=== PATIENT | female | born 1965 | race Caucasian/White ===

== ENCOUNTER 2016-03-20 16:11 | Emergency (ER) | payer BC ==
[2016-03-20 16:41] VITALS: BP 103/71
--- NOTE | 2016-03-20 17:07 | UC ---
Throat Pain/Nasal Uriel HPI - HPI Summary HPI Summary: complaint of right eye redness and itching which started last night - some purulent discharge and crusting on eyelashes this morning used normal saline drops without relief nasal congestion that returned 3 days ago mild sore throat post nasal drip non productive cough dx with sinusitis and finished a course of augmentin approx 6 days ago still taking prednisone for lupus flareup taking tylenol, affrin nasal spray OTC cold and sinus - History of Current Complaint Chief Complaint: UCGeneralIllness Stated Complaint: SINUS/PINK EYE Time Seen by Provider: 03/20/16 17:01 Hx Obtained From: Patient - Allergies/Home Medications Allergies/Adverse Reactions: Allergies Allergy/AdvReac Type Severity Reaction Status Date / Time Ciprofloxacin [From Cipro] Allergy Intermediate itchy rash Verified 03/20/16 16: 42 Levofloxacin [From Levaquin] Allergy Intermediate itchy rash Verified 03/20/16 16:42 Morphine and Related Allergy Intermediate itchy rash Verified 03/20/16 16:42 Home Medications: Home Medications Folic Acid TAB* [Folvite TAB*] 1 mg PO DAILY 03/20/16 [History Confirmed ] Hydroxychloroquine TAB* [Plaquenil TAB*] 200 mg PO BID 03/20/16 [History Confirmed 03/20/16] Methotrexate* 12.5 mg .SEE ORDER WEEKLY 03/20/16 [History Confirmed 03/20/16] PMH/Surg Hx/FS Hx/Imm Hx Previously Healthy: No - lupus flareup Endocrine History Of: Reports: Thyroid Disease Cardiovascular History Of: Reports: Cardiac Disorders - SVT - Surgical History Surgical History: Yes Surgery Procedure, Year, and Place: HYSTERECTOMY, GALL BLADDER REMOVAL, TONSILLECTOMY - Family History Known Family History: Negative: Cardiac Disease, Hypertension, Diabetes - Social History Occupation: Employed Full-time Lives: With Family Alcohol Use: Occasionally Substance Use Type: None Smoking Status (MU): Current Some Day Smoker Type: Cigarettes Length of Time of Smoking/Using Tobacco: 30 YRS Cessation Counseling: Patient Advised to Stop Review of Systems Constitutional: Negative ENT: Sore Throat, Nasal Discharge Respiratory: Cough Cardiovascular: Negative Gastrointestinal: Negative Genitourinary: Negative Motor: Negative Neurovascular: Negative Musculoskeletal: Negative Neurological: Negative Psychological: Negative All Other Systems Reviewed And Are Negative: Yes Physical Exam Triage Information Reviewed: Yes Appearance: No Pain Distress, Well-Nourished Vital Signs: Initial Vital Signs Temp 98.2 F 03/20/16 16:37 Pulse 85 03/20/16 16:37 Resp 16 03/20/16 16:37 BP 103/71 03/20/16 16:37 Pulse Ox 98 03/20/16 16:37 Vital Signs Reviewed: Yes Eyes: Positive: Conjunctiva Inflamed - right eye, Discharge ENT: Positive: Pharynx normal, Nasal congestion, Nasal drainage - clear, Other: - no sinus tednerness. Negative: TMs normal, Tonsillar swelling, Tonsillar exudate Neck: Positive: No Lymphadenopathy Respiratory: Positive: Lungs clear, Normal breath sounds, No respiratory distress Cardiovascular: Positive: RRR, No Murmur, Pulses Normal Abdomen Description: Positive: Nontender, Soft Bowel Sounds: Positive: Present Musculoskeletal: Positive: No Edema Neurological: Positive: Alert Psychological Exam: Normal Skin Exam: Normal Throat Pain/Nasal Course/Dx - Differential Dx/Diagnosis Differential Diagnosis/HQI/PQRI: Pharyngitis, Sinusitis, URI Provider Diagnoses: conjuncivitis, URI Discharge - Discharge Plan Condition: Stable Disposition: HOME Prescriptions: Tobramycin (Ophth) [Tobrex] 0.3 % OP Q4HR #1 btl Patient Education Materials: Conjunctivitis (ED), Upper Respiratory Infection ( ED) Referrals: Chloe Goins MD [Primary Care Provider] - Additional Instructions: Start antibiotic drops as directed Increase fluids and rest Take acetaminophen or ibuprofen for fever or pain Please review your discharge instructions. If your symptoms do not improve please call your primary care provider or return to urgent care
== END 2016-03-20 17:35 | disposition home or self-care (01) ==
LOC: UCCORT 16:11
DX: H10.9 Unspecified conjunctivitis (principal); J06.9 Acute upper respiratory infection, unspecified; M32.9 Systemic lupus erythematosus, unspecified; F17.210 Nicotine dependence, cigarettes, uncomplicated; Z88.1 Allergy status to other antibiotic agents; Z88.5 Allergy status to narcotic agent
CPT/HCPCS: 99212; G0463

== ENCOUNTER 2019-04-05 17:10 | Emergency (ER) | payer BC ==
--- OUTSIDE RECORDS SUMMARY | 2019-04-05 17:20 | XMS REPORT | Summary of Care ---
:1965 Author Organization [facility] Address [address] [place] [address] Care Team Providers Name Role Phone Aidee Lemons Ally TEMPERING KILN TENDER Primary Care Provider Encounter Details Date Type Department Care Team Description 02/16/2019 Hospital Encounter Diagnostic Radiology Right shoulder pain, [id number] unspecified chronicity [address] [place] [address] Allergies Active Allergy Reactions Severity Noted Date Comments Ciprofloxacin Rash Low 07/03/2013 Duloxetine Other (See Comments) 07/18/2016 Chest pain Venlafaxine Other (See Comments) 10/18/2016 Chest Pain Levofloxacin Rash Low 07/03/2013 Atorvastatin Rash Low 07/03/2013 Morphine And Related Rash Low 07/03/2013 documented as of this encounter (statuses as of 02/17/2019) Medications Medication Sig Dispensed Refills Start Date End Date Status TRICOR 145 MG tablet Take 145 mg by 0 06/22/2013 Active mouth daily. SYNTHROID 50 MCG tablet Take 50 mcg by 0 06/16/2013 Active mouth daily. Ascorbic Acid (VITAMIN C Take 500 mg by 0 Active WITH REBA HIPS) 500 MG mouth daily. tablet Diclofenac Sodium 1.5 % Apply topically 0 04/13/2014 Active SOLN as needed. ondansetron (ZOFRAN) 4 Take 4 mg by 0 03/16/2014 Active MG tablet mouth as needed. cyclobenzaprine Take 2 tablets 30 tablet 1 07/16/2014 Active (FLEXERIL) 5 MG tablet by mouth Three times daily as needed. magnesium oxide (MAG-OX) Take 400 mg by 0 Active 400 MG tablet mouth daily. B Complex Vitamins Take 1 tablet by 0 04/15/2013 Active (VITAMIN B COMPLEX IJ) mouth daily. Cholecalciferol (VITAMIN Take 2,000 Units 0 06/25/2011 Active D3) 2000 UNITS capsule by mouth daily. Misc. Devices (DURABLE Use as directed. 2 each 3 10/13/2014 Active MEDICAL EQUIPMENT SEE 20-30 mm Hg SIG) MISC compression garments; knee high; 2 pair; Jobst or equivalent omeprazole (PRILOSEC) 40 Take 40 mg by 0 Active MG capsule mouth daily. loratadine (CLARITIN) 10 Take 10 mg by 0 Active MG tablet mouth daily simvastatin (ZOCOR) 10 0 03/12/2017 Active MG tablet maalox/lidocaine/diphenh Swish and spit 900 mL 1 07/15/2017 Active ydrAMINE (RADIATION 10 mLs every 4 MIXTURE) 1:1:1 oral (four) hours as suspension needed Pharmacy compound: Maalox, lidocaine viscous 2 %, Benadryl 12.5 mg/5 mL metoprolol (TOPROL-XL) Take 50 mg by 0 Active 50 MG 24 hr tablet mouth daily HYDROcodone-acetaminophe Take 1 tablet by 12 tablet 0 09/30/2017 Active n (LORTAB) 5-325 MG per mouth every 6 tablet (six) hours as needed , Max Daily Dose: 4 tablets budesonide (PULMICORT) 1 respule in 60 mL 12 11/28/2017 Active 0.25 MG/2ML nebulizer nasal saline was solution daily pantoprazole (PROTONIX) Take 1 tablet by 60 tablet 5 01/07/2018 Active 40 MG tabletIndications: mouth Two times Gastroesophageal reflux daily before disease, esophagitis meals presence not specified Misc. Devices (DURABLE Use as directed. 2 each 3 02/06/2018 Active MEDICAL EQUIPMENT SEE 20-30 mm Hg SIG) MISCIndications: Compression Acute deep vein Garments, Knee thrombosis (DVT) of High, Jobst or femoral vein of left Equivalent, two lower extremity, pair Post-phlebitic syndrome fluticasone (FLONASE) 50 2 sprays by 16 g 11 03/26/2018 Active MCG/ACT nasal spray Nasal route daily cetirizine (ZYRTEC) 10 Take 1 tablet by 30 tablet 11 04/10/2018 Active MG tablet mouth daily 0 metoprolol tartrate TAKE 1 2 TABLET 2 12/09/2017 Active (LOPRESSOR) 25 MG tablet BY MOUTH EVERY NIGHT FOLBEE 2.5-25-1 MG TABS Take 1 tablet by 30 each 3 05/16/2018 Active mouth daily enoxaparin sodium Inject 0.8 mLs 14.98 mL 1 06/17/2018 Active (LOVENOX) 120 MG/0.8ML into the skin SOLN injection daily meloxicam (MOBIC) 7.5 MG Take 1 tablet by 90 tablet 3 07/03/2018 Active tabletIndications: Acute mouth daily 0 deep vein thrombosis (DVT) of femoral vein of left lower extremity, Post-phlebitic syndrome apixaban (ELIQUIS) 5 MG Take 1 tablet by 60 tablet 5 09/30/2018 Active tabletIndications: mouth Two Times Antiphospholipid Daily syndrome gabapentin (NEURONTIN) Take 1.5 tablets 135 tablet 11 10/06/2018 Active 600 MG tablet by mouth Three 0 times daily mycophenolate (CELLCEPT) Take 1 tablet by 90 tablet 11 11/26/2018 Active 500 MG tablet mouth Three 0 times daily with meals hydroxychloroquine Take 1 tablet by 180 tablet 3 11/26/2018 Active (PLAQUENIL) 200 MG mouth Two Times tablet Daily PEG 3350-KCl-Na The day prior to 4000 mL 0 01/15/2019 Active Bicarb-NaCl 420 GM Oral procedure Solution Reconstituted between 2:30-5 (NULYTELY)Indications: begin drinking Encounter for screening an 8 ounce glass colonoscopy every 10-15 min until solution is finished documented as of this encounter (statuses as of 02/17/2019) Active Problems Patient Care Coordination Note [facility] Checking Department Supervisor Pharmacists manage anticoagulation and ALL anticoagulant prescriptions ([phone]) FOR CURRENT ANTICOAGULANT DOSAGE PLEASE REFER TO MOST RECENT ANTICOAG-VISIT OR PHARMACIST TELEPHONE NOTE. Problem Noted Date Chronic anticoagulation 05/11/2018 Antiphospholipid syndrome 04/17/2018 Anticoagulation goal of INR 2.5-3 04/17/2018 Overview: DO NOT RESOLVE THIS PROBLEM. USED FOR ANTICOAGULATION MONITORING ANTICOAGULANT: warfarin ANTICOAGULATION INDICATION: recurrent dvt X3 and aplas hyperhomosysteinemia ( most recent 12/29 dvt left femoral proximal) KNOWN CONFOUNDING FACTORS: EXISTING DIETARY INTERACTIONS: EXISTING MEDICATION INTERACTIONS: levothyroxine DESIRED INR RANGE: 2.5-3 (field) INR LOCATION: [facility] DATE STARTED: INITIAL ANTICOAG NOTE: INTENDED DURATION: chronic COMPLETION (anticipated): BRIDGING: RISK (Y/N): n (If Yes, specify contraception method): HYPERCOAG WORKUP?: DOAC CANDIDATE?: no Results for FANNY WATSON ( ) as of 04/25/2018 12:48 Ref. Range 05/12/2014 10:30 06/14/2014 15:42 06/22/2014 10:41 Cardiolipin IgA Ab Latest Ref Range: 0 - 11 APL 2 Cardiolipin IgG Ab Latest Ref Range: 0 - 14 GPL 1 Cardiolipin IgM Ab Latest Ref Range: 0 - 12 MPL 5 B2 Glycoprotein IgG Latest Ref Range: <=20 SGU <9 B2 Glycoprotein IgM Latest Ref Range: <=20 SMU <9 B2 Glygoprotein IgA Latest Ref Range: <=20 LASHAWN <9 dRVV Ratio Latest Ref Range: <1.20 Ratio 1.42 (H) Hex Phase Phospho Neut Latest Ref Range: <10.0 sec 5.2 5.1 PLATELET NEUTRALIZATION Latest Ref Range: <1.0 sec 0.0 Chronic maxillary sinusitis 09/30/2017 Chronic ethmoidal sinusitis 09/30/2017 Nasal turbinate hypertrophy 09/30/2017 PONV (postoperative nausea and vomiting) 09/24/2017 GERD without esophagitis 06/04/2017 Sudden onset of severe abdominal pain 09/22/2015 Neck pain 03/11/2015 Rash 10/25/2014 Venous insufficiency 10/13/2014 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 Lupus (systemic lupus erythematosus) 09/20/2014 DVT (deep venous thrombosis) 09/20/2014 Antiphospholipid antibody syndrome 09/20/2014 Myofascial muscle pain 07/16/2014 Radiculopathy 09/22/2013 CTS (carpal tunnel syndrome) 09/22/2013 Cervical stenosis of spine 07/03/2013 documented as of this encounter (statuses as of 02/17/2019) Immunizations Name Administration Dates Next Due Influenza Quad IM with Pres (0.5 mL dose) 11/25/2015 Pneumococcal Conjugate PCV13 12/30/2015 documented as of this encounter Social History Tobacco Use Types Packs/Day Years Used Date Light Tobacco Smoker Smokeless Tobacco: Never Used Comments: one every few years Alcohol Use Drinks/Week oz/Week Comments Yes 3 Cans of beer 3.0 Sex Assigned at Date Recorded Not on file Job Start Date Occupation Industry Not on file Not on file Not on file Travel History Travel Start Travel End No recent travel history available. documented as of this encounter Last Filed Vital Signs Not on filedocumented in this encounter Plan of Treatment Date Type Specialty Care Team Description 02/18/2019 Office Visit Rheumatology Edgardo Radford MD [address] [facility] 2nd Floor [address] [place] [address] [phone] 02/26/2019 Office Visit Pain Medicine 03/09/2019 Procedure visit Gastroenterology Del Grey MD [address] [place] [address] [phone] 03/11/2019 Office Visit Vascular Surgery Zacarias Asher MD [address] [place] [address] [phone] Health Maintenance Due Date Last Done Comments MMR Vaccines (1 of 1 - 1966 Standard series) Varicella Vaccines (1 of 2 1966 - 2-dose childhood series) DTaP,Tdap,and Td Vaccines 1972 (1 - Tdap) HIV Screening 1978 Cervical Cancer Screening 5 1986 years Pneumococcal Vaccine: 02/24/2016 12/30/2015 Pediatrics (0 to 5 Years) and At-Risk Patients (6 to 64 Years) (1 of 1 - PPSV23) Influenza Vaccine 11/11/2018 11/25/2015 Breast Cancer Screening 2 05/23/2020 05/23/2018, 05/22/2017, years 05/16/2017, Additional history exists Colon Cancer Screening 10 01/26/2026 01/27/2016 yrs Pneumococcal Vaccine: 65+ 2030 12/30/2015 Years (2 of 2 - PPSV23) HIB Vaccines Aged Out No longer eligible based on patient's age to complete this topic Hepatitis A Vaccines Aged Out No longer eligible based on patient's age to complete this topic Hepatitis B Vaccines Aged Out No longer eligible based on patient's age to complete this topic IPV Vaccines Aged Out No longer eligible based on patient's age to complete this topic documented as of this encounter Implants Implanted Type Area Blocker And Cutter Contact Lens Device Shelf Model / Identifier Expiration Date Serial / Lot Margie[employer] Nancy [id number]. - [id number] Right: HOLOGIC 2017 [id number] / Implanted: Qty: 1 on 05/27/2017 by Loy Vazquez MD at [facility] / [id number] documented as of this encounter Procedures Procedure Name Priority Date/Time Associated Diagnosis Comments XR SHOULDER Routine 02/16/2019 12:18 PM Right shoulder pain, Results for this COMPLETE 03229 EST unspecified procedure are in chronicity the results section. documented in this encounter Results XR Shoulder Complete Right (02/16/2019 12:18 PM EST) Specimen Impressions Performed At IMPRESSION: [facility] No acute fracture or dislocation. Mild right AC joint degenerative changes. Narrative Performed At INDICATION: Right shoulder pain. [facility] TECHNIQUE: Multiple views of the right shoulder were obtained. COMPARISON: None. FINDINGS: No acute fracture or dislocation. Bony alignment appears anatomic. Mild degenerative changes are seen within the right AC joint. The periarticular soft tissues appear unremarkable. Procedure Note Interface, Received Via [employer] System - 02/16/2019 1:55 PM EST INDICATION: Right shoulder pain. TECHNIQUE: Multiple views of the right shoulder were obtained. COMPARISON: None. FINDINGS: No acute fracture or dislocation. Bony alignment appears anatomic. Mild degenerative changes are seen within the right AC joint. The periarticular soft tissues appear unremarkable. IMPRESSION: No acute fracture or dislocation. Mild right AC joint degenerative changes. Performing Organization Address City/State/Zipcode Phone Number [facility] [address] [place] [address] documented in this encounter Visit Diagnoses Diagnosis Right shoulder pain, unspecified chronicity documented in this encounter
--- OUTSIDE RECORDS SUMMARY | 2019-04-05 17:20 | XMS REPORT | Summary of Care ---
:1965 Author Organization [facility] Address [address] [place] [id number] Care Team Providers Name Role Phone VestaAidee Ally RETAIL TEAM LEADER Primary Care Provider Encounter Details Date Type Department Care Team Description 03/09/2019 [facility] [address] [facility] [address] [place] [address] [address] [place] [address] [phone] Allergies Active Allergy Reactions Severity Noted Date Comments Ciprofloxacin Rash Low 07/03/2013 Duloxetine Other (See Comments) 07/18/2016 Chest pain Venlafaxine Other (See Comments) 10/18/2016 Chest Pain Levofloxacin Rash Low 07/03/2013 Atorvastatin Rash Low 07/03/2013 Morphine And Related Rash Low 07/03/2013 documented as of this encounter (statuses as of 03/11/2019) Medications Medication Sig Dispensed Refills Start Date [...] vein of left lower extremity, Post-phlebitic syndrome gabapentin (NEURONTIN) Take 1.5 tablets 135 [...] every 10-15 min until solution is finished Apixaban 5 MG Oral Take 1 tablet by 60 tablet 5 02/19/2019 Active Tablet mouth Two Times (ELIQUIS)Indications: Daily Antiphospholipid syndrome tiZANidine HCl 4 MG Oral Take 0.5 tablets 30 tablet 2 02/26/2019 Active Tablet (ZANAFLEX) by mouth nightly 0 documented as of this encounter (statuses as of 03/11/2019) Active Problems Patient Care Coordination Note [facility] Heading Maker Pharmacists manage anticoagulation and ALL anticoagulant prescriptions ([phone]) FOR CURRENT ANTICOAGULANT DOSAGE PLEASE REFER TO [...] DESIRED INR RANGE: 2.5-3 (field) INR LOCATION: [facility] DATE STARTED: INITIAL ANTICOAG NOTE: INTENDED [...] as of this encounter (statuses as of 03/11/2019) Immunizations Name Administration Dates Next Due Influenza [...] Treatment Date Type Specialty Care Team Description 05/25/2019 Appointment Radiology 06/03/2019 Office Visit Vascular Surgery Zacarias Asher MD [address] [place], [place] [id number] 08/19/2019 Office Visit Rheumatology Edgardo Radford MD [address] [facility] [address] [place], [place] [id number] Health Maintenance Due Date Last Done Comments [...] 05/16/2017, Additional history exists Colon Cancer Screening 5 03/09/2024 03/09/2019, 01/27/2016 yrs Pneumococcal Vaccine: 65+ 2030 12/30/2015 [...] of this encounter Implants Implanted Type Area Tabber Device Shelf Model / Identifier Expiration Date Serial / Lot Margie[employer] Eviva [id number]. - [id number] Right: HOLOGIC 2017 [id number] / Implanted: Qty: 1 on 05/27/2017 by Loy Vazquez MD at [facility] / [id number] documented as of this encounter Procedures Procedure Name Priority Date/Time Associated Diagnosis Comments COLONOSCOPY 03/09/2019 12:00 AM EST documented in this encounter Results Not on filedocumented in this encounter
--- OUTSIDE RECORDS SUMMARY | 2019-04-05 17:20 | XMS REPORT | Summary of Care ---
:1965 Author Organization [facility] Address [address] [place] [address] Care Team Providers Name Role Phone VestaAidee Ally PSYCHOLOGY LECTURER Primary Care Provider Reason for Referral Pain Medicine (Routine) Status Reason Specialty Diagnoses / Referred By Referred To Procedures Contact Contact Open Pain Medicine Diagnoses Cervical radiculopathy Neck pain Myofascial muscle pain Malorie Talbot MBBS [address] [place] [address] Email: [email or web address] Scheduling Instructions Get Authorization for orders: Yes No Make Appointment for procedure: Yes No Diagnostic Radiology (Routine) Status Reason Specialty Diagnoses / Procedures Referred By Contact Referred To Contact Open Radiology Diagnoses Cervical radiculopathy Neck pain Myofascial muscle pain Malorie Talbot MBBS Procedures MR Cervical Spine without Contrast [address] [place] [address] Email: [email or web address] Reason for Visit Reason Comments Shoulder Pain right Neck Pain Encounter Details Date Type Department Care Team Description 02/26/2019 Office Visit [facility] Cervical radiculopathy (Primary Dx); [facility] at [facility] Kiran MD Neck pain; [facility] [address] Myofascial muscle pain [address] [facility] [address] [place] [address] [place], [place] [phone] Allergies Active Allergy Reactions Severity Noted Date Comments Ciprofloxacin Rash Low 07/03/2013 Duloxetine Other (See Comments) 07/18/2016 Chest pain Venlafaxine Other (See Comments) 10/18/2016 Chest Pain Levofloxacin Rash Low 07/03/2013 Atorvastatin Rash Low 07/03/2013 Morphine And Related Rash Low 07/03/2013 documented as of this encounter (statuses as of 03/03/2019) Medications Medication Sig Dispensed Refills Start Date [...] viscous 2 %, Benadryl 12.5 mg/5 mL carisoprodol (SOMA) 350 Take 1 tablet by 90 tablet 0 08/05/2017 Active MG tabletIndications: mouth Three Neck pain, Myofascial times daily as muscle pain needed for Muscle spasms metoprolol (TOPROL-XL) Take 50 mg by 0 [...] as of this encounter (statuses as of 03/03/2019) Active Problems Patient Care Coordination Note [facility] [employer] Pharmacists manage anticoagulation and ALL anticoagulant prescriptions ([phone]) FOR CURRENT ANTICOAGULANT DOSAGE PLEASE REFER TO [...] DESIRED INR RANGE: 2.5-3 (field) INR LOCATION: [facility] DATE STARTED: INITIAL ANTICOAG NOTE: INTENDED DURATION: chronic COMPLETION (anticipated): BRIDGING: RISK (Y/N): n (If Yes, specify contraception method): HYPERCOAG WORKUP?: DOAC CANDIDATE?: no Results for WATSON AMADA P ( ) as of 04/25/2018 12:48 Ref. [...] as of this encounter (statuses as of 03/03/2019) Immunizations Name Administration Dates Next Due Influenza [...] of this encounter Last Filed Vital Signs Vital Sign Reading Time Taken Comments Blood Pressure 108/70 02/26/2019 3:02 PM EST Pulse 89 02/26/2019 3:02 PM EST Temperature - - Respiratory Rate - - Oxygen Saturation - - Inhaled Oxygen Concentration - - Weight 75.3 kg (166 lb) 02/26/2019 3:02 PM EST Height 160 cm (5' 3") 02/26/2019 3:02 PM EST Body Mass Index 29.41 02/26/2019 3:02 PM EST documented in this encounter Progress Notes Malorie Talbot MBBS - 02/26/2019 3:00 PM EST Subjective: Patient ID: Amada Watson is a 53 y.o. female. HPI Amada Watson is a 53 y.o. female with h/o SLE with diffuse arthalgias who presents for follow up visit for chronic neck pain secondary to cervical radiculopathy and cervical myofascial pain syndrome.Last visit was 10/03/2018 and at that time plan was to switch to Lyrica from Gabapentin (since the patient thought the Gabapentin as not helping), she was also given script for aquatic PT. She tried to go down on Gabapentin to twice a day however it made her pain significantly worse which confirmed Gabapentin was helping hence the planned switch was aborted. She feels that gabapentin is no longer provides relief. She is hesitant about increase in gabapentinany further. She could not go to aquatic therapy because it insurance did not cover it. She also had a XR right shoulder done last week to r/o shoulder pathology (related to her bowling) - no acute fracture, AC degenerative changes noted. Of late, she feels that her neck pain has been progressively getting worse. Today, she reports having neck pain 5/10 along with radiation into b/l arms upto the hands, right >> left. There is associated numbness in right arm and hands. There is also generalized joint stiffness (related to SLE). The pain is aggravated by activity, driving reading and neck movements. It is alleviated by rest and heat Prior injections: 2 CESBs, TPI, myobloc. All of them helped, however insurance company denied coverage for myobloc. Current meds: Gabapentin 900 mg tid, Mobic 7.5 mg once a day PRN. She has h/o DVT and is on blood thinners. Amada has a past medical history of Allergy, unspecified not elsewhere classified, Arrhythmia, Arthritis, Clotting disorder, CTS (carpal tunnel syndrome), GERD (gastroesophageal reflux disease), Lupus, PONV (postoperative nausea and vomiting) (09/24/2017), SVT (supraventricular tachycardia), Thyroid disease, and Ulcer. Amada has Cervical stenosis of spine; Radiculopathy; CTS (carpal tunnel syndrome ); Myofascial musclepain; Lupus (systemic lupus erythematosus); DVT (deep venous thrombosis); Antiphospholipid antibody syndrome; Venous insufficiency; Post-phlebitic syndrome; Rash; Neck pain; Sudden onset of severe abdominal pain ; GERD without esophagitis; PONV (postoperative nausea and vomiting); Chronic maxillary sinusitis; Chronic ethmoidal sinusitis; Nasal turbinate hypertrophy; Antiphospholipid syndrome; Anticoagulation goal of INR 2.5-3; and Chronic anticoagulation on their problem list. Amada has a past surgical history that includes Hysterectomy (1995); Appendectomy (Age 14?); Cholecystectomy (1999); Colonoscopy (1995?); Oophorectomy (Right, 1999); Tonsillectomy (1995); Tubal ligation (1991?); and pr nasal/sinus endoscopy,rmv tiss maxill sinus (Bilateral, 09/30/2017). Her family history includes Alcohol abuse in her father; Arthritis in her father and mother; Asthma in her father; COPD in her father and mother; Cancer in her father and mother; Depression in her father and mother; Diabetes in her father and mother; Early in her mother; Heart disease in her father and mother; Hyperlipidemia in her father and mother; Hypertension in her father and mother; Kidney disease in her father; Mental illness in her father; Stroke in her father and mother. Amada reports that she has been smoking. She has never used smokeless tobacco. She reports current alcohol use of about 3.0 standard drinks of alcohol per week. She reports that she does not use drugs. Amada has a current medication list which includes the following prescription(s) : apixaban, vitamin c with reba hips, b complex vitamins, budesonide, carisoprodol, cetirizine, vitamin d3, cyclobenzaprine, diclofenac sodium, enoxaparin sodium, fluticasone, folbee, gabapentin, hydrocodone-acetaminophen, hydroxychloroquine, loratadine, maalox/lidocaine/diphenhydramine, magnesium oxide, meloxicam, metoprolol, metoprolol tartrate, durable medical equipment see sig, durable medical equipment see sig, mycophenolate, omeprazole, ondansetron, pantoprazole, polyethylene glycol-electrolytes, simvastatin, synthroid, and tricor. Current Outpatient Medications on File Prior to Visit Medication Sig Dispense Refill Apixaban 5 MG Oral Tablet (ELIQUIS) Take 1 tablet by mouth Two Times Daily 60 tablet 5 Ascorbic Acid (VITAMIN C WITH REBA HIPS) 500 MG tablet Take 500 mg by mouth daily. B Complex Vitamins (VITAMIN B COMPLEX IJ) Take 1 tablet by mouth daily. budesonide (PULMICORT) 0.25 MG/2ML nebulizer solution 1 respule in nasal saline was daily 60 mL 12 carisoprodol (SOMA) 350 MG tablet Take 1 tablet by mouth Three times daily as needed for Muscle spasms 90 tablet 0 cetirizine (ZYRTEC) 10 MG tablet Take 1 tablet by mouth daily 30 tablet 11 Cholecalciferol (VITAMIN D3) 2000 UNITS capsule Take 2,000 Units by mouth daily. cyclobenzaprine (FLEXERIL) 5 MG tablet Take 2 tablets by mouth Three times daily as needed. 30 tablet 1 Diclofenac Sodium 1.5 % SOLN Apply topically as needed. enoxaparin sodium (LOVENOX) 120 MG/0.8ML SOLN injection Inject 0.8 mLs into the skin daily 14.98 mL 1 fluticasone (FLONASE) 50 MCG/ACT nasal spray 2 sprays by Nasal route daily 16 g 11 FOLBEE 2.5-25-1 MG TABS Take 1 tablet by mouth daily 30 each 3 gabapentin (NEURONTIN) 600 MG tablet Take 1.5 tablets by mouth Three times daily 135 tablet 11 HYDROcodone-acetaminophen (LORTAB) 5-325 MG per tablet Take 1 tablet by mouth every 6 (six) hours as needed , Max Daily Dose: 4 tablets 12 tablet 0 hydroxychloroquine (PLAQUENIL) 200 MG tablet Take 1 tablet by mouth Two Times Daily 180 tablet 3 loratadine (CLARITIN) 10 MG tablet Take 10 mg by mouth daily maalox/lidocaine/diphenhydrAMINE (RADIATION MIXTURE) 1:1:1 oral suspension Swish and spit 10 mLs every 4 (four) hours as needed Pharmacy compound: Maalox, lidocaine viscous 2 %, Benadryl 12.5 mg/5 mL 900 mL 1 magnesium oxide (MAG-OX) 400 MG tablet Take 400 mg by mouth daily. meloxicam (MOBIC) 7.5 MG tablet Take 1 tablet by mouth daily 90 tablet 3 metoprolol (TOPROL-XL) 50 MG 24 hr tablet Take 50 mg by mouth daily metoprolol tartrate (LOPRESSOR) 25 MG tablet TAKE 1 2 TABLET BY MOUTH EVERY NIGHT 2 Misc. Devices (DURABLE MEDICAL EQUIPMENT SEE SIG) MISC Use as directed. 20-30 mm Hg compression garments; knee high; 2 pair; Jobst or equivalent 2 each 3 Misc. Devices (DURABLE MEDICAL EQUIPMENT SEE SIG) MISC Use as directed. 20-30 mm Hg Compression Garments, Knee High, Jobst or Equivalent, two pair 2 each 3 mycophenolate (CELLCEPT) 500 MG tablet Take 1 tablet by mouth Three times daily with meals 90tablet 11 omeprazole (PRILOSEC) 40 MG capsule Take 40 mg by mouth daily. ondansetron (ZOFRAN) 4 MG tablet Take 4 mg by mouth as needed. pantoprazole (PROTONIX) 40 MG tablet Take 1 tablet by mouth Two times daily before meals 60 tablet 5 PEG 3350-KCl-Na Bicarb-NaCl 420 GM Oral Solution Reconstituted (NULYTEOink ) The day prior to procedure between 2:30-5 begin drinking an 8 ounce glass every 10-15 min until solution is finished 4000 mL 0 simvastatin (ZOCOR) 10 MG tablet SYNTHROID 50 MCG tablet Take 50 mcg by mouth daily. TRICOR 145 MG tablet Take 145 mg by mouth daily. No current facility-administered medications on file prior to visit. Amada is allergic to duloxetine; effexor [venlafaxine]; ciprofloxacin; levaquin [levofloxacin]; lipitor [atorvastatin]; and morphine and related. Review of Systems Constitutional: Negative for chills and fever. Respiratory: Negative for chest tightness and shortness of breath. Cardiovascular: Negative for chest pain and palpitations. Musculoskeletal: Positive for arthralgias, myalgias, neck pain and neck stiffness. Neurological: Positive for numbness (in the right hand). Negative for weakness. Psychiatric/Behavioral: Negative for sleep disturbance. Objective: Visit Vitals LMP 03/12/1994 (LMP Unknown) Physical Exam Vitals signs and nursing note reviewed. Constitutional: Appearance: She is well-developed. HENT: Head: Normocephalic and atraumatic. Pulmonary: Effort: Pulmonary effort is normal. Musculoskeletal: General: Tenderness present. Cervical back: She exhibits decreased range of motion, tenderness and pain. Back: Neurological: Mental Status: She is alert and oriented to person, place, and time. Psychiatric: Behavior: Behavior normal. Trigger points identified in the cervical and trap bilaterally. Assessment: Amada Watson is a 53 y.o. female with h/o SLE with diffuse arthalgias who presents for follow up visit for chronic neck pain secondary to cervical radiculopathy and cervical myofascial pain syndrome.Lately her neck pain has been worsening with radiation into the right arm despite home exercises andmedications. This is likely related to progression of her cervical spondylosis. Last MRI C spine wasin 2014, hence will order MRI C spine to look for interval progression. Plan: 1.Procedure/Intervention: - Plan for cervical paraspinal and trap b/l TPIs, will place authorization request. She may need cervical MONI after MRI C spine or if TPIs are not effective. Note she is on Eliquis for recurrent DVTs and hence will need bridging for cervical ESIs. 2. Medications -Continue current medications, advised against excessive Mobic use due to bleeding potential. She can alternate with Tylenol. C/w Gabapentin and Voltaren gel. Will add Xanaflex 2 mg at night. 3. Conservative measures and therapy: -The patient was encouraged to continue with conservative management of their pain. This includes interventions like heat/ice, meditation, biofeedback, relaxation techniques and behavior training. They can offer benefits with minimal side effects. 4. Imaging: - Prior imaging results - MRI C spine- reviewed today. MRI C spine ordered as above. 5. Patient counseling: - Discussed risks and benefits of medications including Mobic and Tizanidine (including interaction with Gabapentin) and upcoming procedure. Four A's of pain treatment were also elaborated on during the discussion. 6. Referral: - No new referrals placed today. 7. Follow-up -Return to clinic for TPIs- cervical paraspinal and trap b/l. Malorie Talbot Pain Management Fellow Patient seen and plan discussed with Dr. Suresh. I saw and evaluated the patient. Discussed with the resident and agree with the residents findings as documented in the resident's note. A follow-up plan is necessary at this time. documented in this encounter Plan of Treatment Date Type Specialty Care Team Description 03/09/2019 Procedure visit Gastroenterology Del Grey MD [address] [place], [place] [id number] 03/11/2019 Office Visit Vascular Surgery Zacarias Asher MD [address] [place] [address] [phone] 05/25/2019 Appointment Radiology 08/19/2019 Office Visit Rheumatology Edgardo Radford MD [address] [facility] [address] [place], [place] [id number] Name Type Priority Associated Diagnoses Order Schedule MR Cervical Spine Imaging Routine Cervical radiculopathy Expected: 02/26/2019, without Contrast Neck pain Expires: 05/27/2020 Myofascial muscle pain Name Type Priority Associated Diagnoses Order Schedule Orders Outpatient Referral Routine Cervical radiculopathy Ordered: 02/26/2019 Neck pain Myofascial muscle pain Health Maintenance Due Date Last Done Comments [...] of this encounter Implants Implanted Type Area [employer] Professional Device Shelf Model / Identifier Expiration Date Serial / Lot Margie-Smareneak Nancy [id number]. - [id number] Right: HOLOGIC 2017 [id number] / Implanted: Qty: 1 on 05/27/2017 by Loy Vazquez MD at [facility] / [id number] documented as of this encounter Results Not on filedocumented in this encounter Visit Diagnoses Diagnosis Cervical radiculopathy - Primary Brachial neuritis or radiculitis nos Neck pain Cervicalgia Myofascial muscle pain Mylagia and myositis, unspecified documented in this encounter
--- OUTSIDE RECORDS SUMMARY | 2019-04-05 17:20 | XMS REPORT | Summary of Care ---
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 Scheduling Instructions Get Authorization for orders: Yes No Make Appointment for procedure: Yes No Reason for Visit Reason Comments Neck Pain Shoulder Pain right Pain Medicine (Routine) Status Reason Specialty Diagnoses / Referred By Referred To Procedures Contact Contact Authorized Pain Medicine Diagnoses Cervical radiculopathy Neck pain Myofascial muscle pain Malorie Talbot MBBS [address] [place] [address] Email: [email or web address] Encounter Details Date Type Department Care Team Description 03/25/2019 Procedure visit Anil [place] Other chronic pain Pain Medicine at Adair Kiran MD (Primary Dx) and [facility] [address] [place], [facility] [address] [place] [address] [place], [place] [phone] Allergies Active Allergy Reactions Severity Noted Date Comments Ciprofloxacin Rash Low 07/03/2013 Duloxetine Other (See Comments) 07/18/2016 Chest pain Venlafaxine Other (See Comments) 10/18/2016 Chest Pain Levofloxacin Rash Low 07/03/2013 Atorvastatin Rash Low 07/03/2013 Morphine And Related Rash Low 07/03/2013 documented as of this encounter (statuses as of 03/27/2019) Medications Medication Sig Dispensed Refills Start Date End Date Status TRICOR 145 MG tablet Take 145 mg by 0 06/22/2013 Active mouth daily. SYNTHROID 50 MCG Take 50 mcg by 0 06/16/2013 Active tablet mouth daily. Ascorbic Acid (VITAMIN Take 500 mg by 0 Active C WITH REBA HIPS) 500 mouth daily. MG tablet Diclofenac Sodium 1.5 Apply topically 0 04/13/2014 Active % SOLN as needed. ondansetron (ZOFRAN) 4 Take 4 mg by mouth 0 03/16/2014 Active MG tablet as needed. cyclobenzaprine Take 2 tablets by 30 tablet 1 07/16/2014 Active (FLEXERIL) 5 MG tablet mouth Three times daily as needed. magnesium oxide Take 400 mg by 0 Active (MAG-OX) 400 MG tablet mouth daily. B Complex Vitamins Take 1 tablet by 0 04/15/2013 Active (VITAMIN B COMPLEX IJ) mouth daily. Cholecalciferol Take 2,000 Units 0 06/25/2011 Active (VITAMIN D3) 2000 by mouth daily. UNITS capsule Misc. Devices (DURABLE Use as directed. 2 each 3 10/13/2014 Active MEDICAL EQUIPMENT SEE 20-30 mm Hg SIG) MISC compression garments; knee high; 2 pair; Jobst or equivalent omeprazole (PRILOSEC) Take 40 mg by 0 Active 40 MG capsule mouth daily. loratadine (CLARITIN) Take 10 mg by 0 Active 10 MG tablet mouth daily simvastatin (ZOCOR) 10 0 03/12/2017 Active MG tablet maalox/lidocaine/diphe Swish and spit 10 900 mL 1 07/15/2017 Active nhydrAMINE (RADIATION mLs every 4 (four) MIXTURE) 1:1:1 oral hours as needed suspension Pharmacy compound: Maalox, lidocaine viscous 2 %, Benadryl 12.5 mg/5 mL Additional information Patient not taking. Reported on 03/25/2019 1:19 PM carisoprodol (SOMA) 350 MG Take 1 tablet by 90 tablet 0 08/05/2017 Active tabletIndications: Neck pain, mouth Three times Myofascial muscle pain daily as needed for Muscle spasms metoprolol (TOPROL-XL) 50 MG 24 Take 50 mg by mouth 0 Active hr tablet daily HYDROcodone-acetaminophen Take 1 tablet by 12 tablet 0 09/30/2017 Active (LORTAB) 5-325 MG per tablet mouth every 6 (six) hours as needed , Max Daily Dose: 4 tablets budesonide (PULMICORT) 0.25 1 respule in nasal 60 mL 12 11/28/2017 Active MG/2ML nebulizer solution saline was daily Additional information Patient not taking. Reported on 03/25/2019 1:19 PM pantoprazole (PROTONIX) 40 Take 1 tablet by 60 tablet 5 01/07/2018 Active MG tabletIndications: mouth Two times Gastroesophageal reflux daily before meals disease, esophagitis presence not specified Misc. Devices (DURABLE Use as directed. 2 each 3 02/06/2018 Active MEDICAL EQUIPMENT SEE SIG) 20-30 mm Hg MISCIndications: Acute deep Compression vein thrombosis (DVT) of Garments, Knee femoral vein of left lower High, Jobst or extremity, Post-phlebitic Equivalent, two syndrome pair fluticasone (FLONASE) 50 2 sprays by Nasal 16 g 11 03/26/2018 Active MCG/ACT nasal spray route daily cetirizine (ZYRTEC) 10 MG Take 1 tablet by 30 tablet 11 04/10/2018 Active tablet mouth daily 20 metoprolol tartrate TAKE 1 2 TABLET BY 2 12/09/2017 Active (LOPRESSOR) 25 MG tablet MOUTH EVERY NIGHT FOLBEE 2.5-25-1 MG TABS Take 1 tablet by 30 each 3 05/16/2018 Active mouth daily enoxaparin sodium (LOVENOX) Inject 0.8 mLs into 14.98 mL 1 06/17/2018 Active 120 MG/0.8ML SOLN injection the skin daily Additional information Patient not taking. Reported on 03/25/2019 1:19 PM meloxicam (MOBIC) 7.5 MG Take 1 tablet by 90 tablet 3 07/03/20182019 Active tabletIndications: Acute mouth daily deep vein thrombosis (DVT) of femoral vein of left lower extremity, Post-phlebitic syndrome gabapentin (NEURONTIN) 600 Take 1.5 tablets 135 tablet 11 10/06/201810/04 Active MG tablet by mouth Three times daily mycophenolate (CELLCEPT) Take 1 tablet by 90 tablet 11 11/26/20182019 Active 500 MG tablet mouth Three times daily with meals hydroxychloroquine Take 1 tablet by 180 tablet 3 11/26/2018 Active (PLAQUENIL) 200 MG tablet mouth Two Times Daily PEG 3350-KCl-Na The day prior to 4000 mL 0 01/15/2019 Active Bicarb-NaCl 420 GM Oral procedure Solution Reconstituted between 2:30-5 (NULYTELY)Indications: begin drinking Encounter for screening an 8 ounce glass colonoscopy every 10-15 min until solution is finished Additional information Patient not taking. Reported on 03/25/2019 1:22 PM Apixaban 5 MG Oral Tablet Take 1 tablet by 60 tablet 5 02/19/2019 Active (ELIQUIS)Indications: mouth Two Times Antiphospholipid syndrome Daily tiZANidine HCl 4 MG Oral Take 0.5 tablets 30 tablet 2 02/26/2019 Active Tablet (ZANAFLEX) by mouth nightly 0 Amoxicillin-Pot Clavulanate Take 1 tablet by 20 tablet 0 03/25/2019 Active 875-125 MG Oral Tablet mouth Two Times 0 Daily for 10 days Additional information Patient not taking. 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 Pharmacists manage anticoagulation and ALL anticoagulant prescriptions ([phone]) FOR CURRENT ANTICOAGULANT DOSAGE PLEASE REFER TO [...] MEDICATION INTERACTIONS: levothyroxine DESIRED INR RANGE: 2.5-3 (fiedl) INR LOCATION: [facility] DATE STARTED: INITIAL ANTICOAG NOTE: INTENDED DURATION: chronic COMPLETION (anticipated): BRIDGING: RISK (Y/N): n (If Yes, specify contraception method): HYPERCOAG WORKUP?: DOAC CANDIDATE?: no Results for AMADA WATSON ( ) as of 04/25/2018 12:48 [...] as of this encounter (statuses as of 03/27/2019) Immunizations Name Administration Dates Next Due Influenza [...] Sign Reading Time Taken Comments Blood Pressure 103/71 03/25/2019 1:44 PM EST Pulse 94 03/25/2019 1:44 PM EST Temperature - - Respiratory Rate - - Oxygen Saturation - - Inhaled Oxygen Concentration - - Weight 72.6 kg (160 lb) 03/25/2019 1:14 PM EST Height 160 cm (5' 3") 03/25/2019 1:14 PM EST Body Mass Index 28.34 03/25/2019 1:14 PM EST documented in this encounter Patient Instructions Patient InstructionsBlossom Luz RN - 03/25/2019 1:30 PM ESTCom[facility] Discharge Instructions Trigger Point Injection Your Physician has given you a trigger point injection (s). A trigger point is an area of tenderness related to muscle spasm. This procedure is done to relieve spasm and pain, by injecting medicationdirectly into the area. The local anesthetic medication used will provide a temporary numbing effect. A steroid medication may be used to decrease inflammation and will work slowly over the next one to two weeks. After the injection you may notice the followin. Dizziness, particularly if several spots are injected 2. Increase tenderness in the area of your usual pain These effects are temporary and will diminish over time. For injection site tenderness, apply an ice pack to the injection site for 20 minute period, then remove for one hour. Repeat as necessary. Please notify the Pain Center if you notice: 1. Redness, swelling or drainage from the injection sites, or have a fever 2. Prolonged dizziness It is very important to continue your regular exercise program particularly stretching exercises. Please contact [facility] at [phone] or through [facility], should you have any questions or concerns regarding your treatment. 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 We have explained to her that this may be related to her symptoms of radicular symptoms down to her hands. We have ordered a cervical MONI to be done ideally at that level. 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 Time-out and procedure verification were performed. The risks and benefits of the procedure were explained. The patient appeared to understand and agreed to the procedure. An informed consent was obtained. The patient was place in the seated position and the trigger points were marked in the cervical paraspinals, rhomboid, levator scapulae and trapezius muscle groups on the right side. The area was prepped and draped in a routine manner. Using aseptic technique, a 25g 1.5 inch needle and 7 mL of 0.25% bupivacaine with NO STEROID was injected following negative aspiration at these levels; pt prescribed anti biotics by her ENT but she has not started it yet. The procedure was completed without apparent difficulty or complications. The patient appeared to tolerate it well. Post Procedure checklist: Post procedure pain score: 0 Homer Aparicio M.D. PGY-3 Resident Physical Medicine and Rehabilitation I was present for the entire procedure and I agree with the resident's note. documented in this encounter Plan of Treatment Date Type Specialty Care Team Description 04/21/2019 Office Visit Ophthalmology James Salmeron MD [address] [facility] [address] [place], [place] [id number] 05/25/2019 Appointment Radiology 06/03/2019 Office Visit Vascular Surgery Zacarias Asher MD [address] [place] [address] [phone] 08/19/2019 Office Visit Rheumatology Edgardo Radford MD [address] [place] [address] [phone] Name Type Priority Associated Diagnoses Order Schedule Orders Outpatient Referral Routine Other chronic pain Ordered: 03/25/2019 Health Maintenance Due Date Last Done Comments [...] of this encounter Implants Implanted Type Area Garment Form Assembler Device Shelf Model / Identifier Expiration Date Serial / Lot [employer] Eviva [id number]. - [id number] Right: HOLOGIC 2017 [id number] / Implanted: Qty: 1 on 05/27/2017 by Loy Vazquez MD at [facility] / [id number] documented as of this encounter Results Not on filedocumented in this encounter Visit Diagnoses Diagnosis Other chronic pain - Primary documented in this encounter
--- OUTSIDE RECORDS SUMMARY | 2019-04-05 17:20 | XMS REPORT | Summary of Care ---
:[address] 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 Primary Care Provider Reason for Referral Diagnostic Radiology (Routine) Status Reason Specialty Diagnoses / Referred By Referred To Procedures Contact Contact Authorized Radiology Diagnoses Cervical radiculopathy Neck pain Myofascial muscle pain Malorie Talbot, Procedures MR Cervical Spine without Contrast MBBS [address] [place] [address] Email: [email or web address] Reason for Visit Diagnostic Radiology (Routine) Status Reason Specialty Diagnoses / Referred By Referred To Procedures Contact Contact Authorized Radiology Diagnoses Cervical radiculopathy Neck pain Myofascial muscle pain Malorie Talbot, Procedures MR Cervical Spine without Contrast MBBS [address] [place] [address] Email: [email or web address] Encounter Details Date Type Department Care Team Description 03/16/2019 Hospital Encounter MRI [id number] Cervical radiculopathy; [address] Neck pain; Rajendra [place] [address] Allergies Active Allergy Reactions Severity Noted Date Comments Ciprofloxacin Rash Low 07/03/2013 Duloxetine Other (See Comments) 07/18/2016 Chest pain Venlafaxine Other (See Comments) 10/18/2016 Chest Pain Levofloxacin Rash Low 07/03/2013 Atorvastatin Rash Low 07/03/2013 Morphine And Related Rash Low 07/03/2013 documented as of this encounter (statuses as of 03/17/2019) Medications Medication Sig Dispensed Refills Start Date [...] as of this encounter (statuses as of 03/17/2019) Active Problems Patient Care Coordination Note [facility] [employer] Director Pharmacists manage anticoagulation and ALL anticoagulant prescriptions ([phone]) FOR CURRENT ANTICOAGULANT DOSAGE PLEASE REFER TO [...] DESIRED INR RANGE: 2.5-3 (field) INR LOCATION: [facility] DATE STARTED: INITIAL ANTICOAG NOTE: INTENDED DURATION: chronic COMPLETION (anticipated): BRIDGING: RISK (Y/N): n (If Yes, specify contraception method): HYPERCOAG WORKUP?: DOAC CANDIDATE?: no Results for AMADA WATSON Anil ( ) as of 04/25/2018 12:48 Ref. [...] as of this encounter (statuses as of 03/17/2019) Immunizations Name Administration Dates Next Due Influenza [...] Treatment Date Type Specialty Care Team Description 03/25/2019 Procedure visit Pain Medicine Anil Suresh MD [address] [place] [address] [phone] 05/25/2019 Appointment Radiology 06/03/2019 Office Visit Vascular Surgery Zacarias Asher MD [address] [place] [address] [phone] 08/19/2019 Office Visit Rheumatology Edgardo Radford MD [address] [facility] 2[address] Floor [address] [place] [address] [phone] Name Type Priority Associated Diagnoses Date/Time MR Cervical Spine Imaging Routine Cervical radiculopathy 03/16/2019 5:13 PM without Contrast Neck pain EST Myofascial muscle pain Name Type Priority Associated Diagnoses Order Schedule MR Cervical Spine Imaging Routine Cervical radiculopathy As Needed for 1 without Contrast Neck pain Occurrences starting Myofascial muscle pain 03/16/2019 until 03/16/2019 Health Maintenance Due Date Last Done Comments [...] of this encounter Implants Implanted Type Area [place] Device Shelf Model / Identifier Expiration Date Serial / Lot [employer] Eviva [id number]. - [id number] Right: HOLOGIC 2017 [id number] / Implanted: Qty: 1 on 05/27/2017 by Loy Vazquez MD at [facility] / [id number] documented as of this encounter Results Not on filedocumented in this encounter Visit Diagnoses Diagnosis Cervical radiculopathy Brachial neuritis or radiculitis nos Neck pain Cervicalgia Myofascial muscle pain Mylagia and myositis, unspecified documented in this encounter
--- OUTSIDE RECORDS SUMMARY | 2019-04-05 17:20 | XMS REPORT | Summary of Care ---
:1965 Author Organization [facility] Address [address] [place] [address] Care Team Providers Name Role Phone VestaAidee Ally BAND CUTTER Primary Care Provider Reason for Visit Reason Comments Follow-up Encounter Details Date Type Department Care Team Description 02/18/2019 Office Visit Martín Radford SLE (systemic lupus erythematosus related syndrome) (Primary Dx); Rheumatology MD Karl Long-term use of Plaquenil; [address] High risk medication use; [place], [place] [facility]ticoag[facility] [address] [address] [place] [address] [phone] Allergies Active Allergy Reactions Severity Noted Date Comments Ciprofloxacin Rash Low 07/03/2013 Duloxetine Other (See Comments) 07/18/2016 Chest pain Venlafaxine Other (See Comments) 10/18/2016 Chest Pain Levofloxacin Rash Low 07/03/2013 Atorvastatin Rash Low 07/03/2013 Morphine And Related Rash Low 07/03/2013 documented as of this encounter (statuses as of 02/19/2019) Medications Medication Sig Dispensed Refills Start End Status Date Date TRICOR 145 MG tablet Take 145 mg by 0 06/23/19 Active mouth daily. 14 SYNTHROID 50 MCG Take 50 mcg by 0 06/17/19 Active tablet mouth daily. 14 Ascorbic Acid (VITAMIN Take 500 mg by 0 Active C WITH REBA HIPS) 500 mouth daily. MG tablet Diclofenac Sodium 1.5 Apply 0 04/14/19 Active % SOLN topically as 15 needed. ondansetron (ZOFRAN) 4 Take 4 mg by 0 03/16/19 Active MG tablet mouth as 15 needed. cyclobenzaprine Take 2 tablets 30 tablet 1 07/17/19 Active (FLEXERIL) 5 MG tablet by mouth Three 15 times daily as needed. magnesium oxide Take 400 mg by 0 Active (MAG-OX) 400 MG tablet mouth daily. B Complex Vitamins Take 1 tablet 0 04/16/19 Active (VITAMIN B COMPLEX IJ) by mouth 14 daily. Cholecalciferol Take 2,000 0 06/25/19 Active (VITAMIN D3) 2000 Units by mouth 12 UNITS capsule daily. Misc. Devices (DURABLE Use as 2 each 3 10/14/19 Active MEDICAL EQUIPMENT SEE directed. 15 SIG) MISC 20-30 mm Hg compression garments; knee high; 2 pair; Jobst or equivalent omeprazole (PRILOSEC) Take 40 mg by 0 Active 40 MG capsule mouth daily. loratadine (CLARITIN) Take 10 mg by 0 Active 10 MG tablet mouth daily simvastatin (ZOCOR) 10 0 03/12/19 Active MG tablet 18 maalox/lidocaine/diphe Swish and spit 900 mL 1 07/16/19 Active nhydrAMINE (RADIATION 10 mLs every 4 18 MIXTURE) 1:1:1 oral (four) hours suspension as needed Pharmacy compound: Maalox, lidocaine viscous 2 %, Benadryl 12.5 mg/5 mL carisoprodol (SOMA) Take 1 tablet 90 tablet 0 08/06/19 Active 350 MG by mouth Three 18 tabletIndications: times daily as Neck pain, Myofascial needed for muscle pain Muscle spasms metoprolol (TOPROL-XL) Take 50 mg by 0 Active 50 MG 24 hr tablet mouth daily HYDROcodone-acetaminop Take 1 tablet 12 tablet 0 10/01/19 Active hen (LORTAB) 5-325 MG by mouth every 18 per tablet 6 (six) hours as needed , Max Daily Dose: 4 tablets budesonide (PULMICORT) 1 respule in 60 mL 12 11/29/19 Active 0.25 MG/2ML nebulizer nasal saline 18 solution was daily pantoprazole Take 1 tablet 60 tablet 5 01/08/20 Active (PROTONIX) 40 MG by mouth Two 18 tabletIndications: times daily Gastroesophageal before meals reflux disease, esophagitis presence not specified Misc. Devices (DURABLE Use as 2 each 3 02/07/20 Active MEDICAL EQUIPMENT SEE directed. 18 SIG) MISCIndications: 20-30 mm Hg Acute deep vein Compression thrombosis (DVT) of Garments, Knee femoral vein of left High, Jobst or lower extremity, Equivalent, Post-phlebitic two pair syndrome fluticasone (FLONASE) 2 sprays by 16 g 11 03/26/19 Active 50 MCG/ACT nasal spray Nasal route 19 daily cetirizine (ZYRTEC) 10 Take 1 tablet 30 tablet 11 04/10/19 Active MG tablet by mouth daily 020 metoprolol tartrate TAKE 1 2 2 12/10/19 Active (LOPRESSOR) 25 MG TABLET BY 18 tablet MOUTH EVERY NIGHT FOLBEE 2.5-25-1 MG Take 1 tablet 30 each 3 05/17/19 Active TABS by mouth daily 19 enoxaparin sodium Inject 0.8 mLs 14.98 mL 1 06/18/19 Active (LOVENOX) 120 MG/0.8ML into the skin 19 SOLN injection daily meloxicam (MOBIC) 7.5 Take 1 tablet 90 tablet 3 07/04/19 Active MG tabletIndications: by mouth daily 020 Acute deep vein thrombosis (DVT) of femoral vein of left lower extremity, Post-phlebitic syndrome gabapentin (NEURONTIN) Take 1.5 135 tablet 11 10/07/19 Active 600 MG tablet tablets by 020 mouth Three times daily mycophenolate Take 1 tablet 90 tablet 11 11/27/19 Active (CELLCEPT) 500 MG by mouth Three 020 tablet times daily with meals hydroxychloroquine Take 1 tablet 180 tablet 3 11/27/19 Active (PLAQUENIL) 200 MG by mouth Two 19 tablet Times Daily PEG 3350-KCl-Na The day prior 4000 mL 0 01/16/20 Active Bicarb-NaCl 420 GM to procedure 19 Oral Solution between 2:30-5 Reconstituted begin drinking (NULYTELY)Indications: an 8 ounce Encounter for glass every screening colonoscopy 10-15 min until solution is finished apixaban (ELIQUIS) 5 Take 1 tablet 60 tablet 5 08/20/20 01/09/2 Discontinued MG tabletIndications: by mouth Two 19 020 (Reorder) Antiphospholipid Times Daily syndrome documented as of this encounter (statuses as of 02/19/2019) Active Problems Patient Care Coordination Note [facility] 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 and ALL anticoagulant prescriptions ([phone]) FOR CURRENT ANTICOAGULANT DOSAGE PLEASE REFER TO [...] MEDICATION INTERACTIONS: levothyroxine DESIRED INR RANGE: 2.5-3 (charles) INR LOCATION: [facility] DATE STARTED: INITIAL ANTICOAG NOTE: [...] as of this encounter (statuses as of 02/19/2019) Immunizations Name Administration Dates Next Due Influenza Quad IM with Pres (0.5 mL dose) 11/25/2015 Pneumococcal Conjugate PCV13 12/30/2015 documented as of this encounter Social History Tobacco Use Types Packs/Day Years Used Date Light Tobacco Smoker Smokeless Tobacco: Never Used Tobacco Cessation: Ready to Quit: No; Counseling Given: No Comments: one every few years Alcohol Use [...] Sign Reading Time Taken Comments Blood Pressure 114/55 02/18/2019 3:42 PM EST Pulse 88 02/18/2019 3:42 PM EST Temperature 36.9 02/18/2019 3:42 PM EST C (98.4 F) Respiratory Rate 18 02/18/2019 3:42 PM EST Oxygen Saturation 97% 02/18/2019 3:42 PM EST Inhaled Oxygen Concentration - - Weight 78 kg (172 lb) 02/18/2019 3:42 PM EST Height 160 cm (5' 3") 02/18/2019 3:42 PM EST Body Mass Index 30.47 02/18/2019 3:42 PM EST documented in this encounter Progress Notes Karl Radford MD - 02/18/2019 4:00 PM EST Subjective: Patient ID: Amada Watson is a 53 y.o. female. Dictation on: 02/18/2019 4:15 PM by: KARL CHARLES [[id number]] CLIVE Ybarra has a past medical history of Allergy, unspecified not elsewhere classified, Arrhythmia, Arthritis, Clotting disorder, CTS (carpal tunnel syndrome), GERD (gastroesophageal reflux disease), Lupus, PONV (postoperative nausea and vomiting) (09/24/2017), SVT (supraventricular tachycardia), Thyroid disease, and Ulcer. Amada has a past surgical history that [...] pantoprazole, polyethylene glycol-electrolytes, simvastatin, synthroid, and tricor. Amada is allergic to duloxetine; effexor [venlafaxine]; ciprofloxacin; levaquin [levofloxacin]; lipitor [atorvastatin]; and morphine and related. Review of Systems Constitutional: Negative. HENT: Negative. Eyes: Negative. Respiratory: Negative. Cardiovascular: Negative. Gastrointestinal: Negative. Endocrine: Negative. Genitourinary: Negative. Musculoskeletal: Positive for joint swelling. Negative for arthralgias. Skin: Negative. Allergic/Immunologic: Negative. Neurological: Negative. Hematological: Negative. Psychiatric/Behavioral: Negative. Objective: Physical Exam Vitals signs reviewed. Constitutional: Appearance: She is well-developed. HENT: Head: Normocephalic and atraumatic. Eyes: Conjunctiva/sclera: Conjunctivae normal. Neck: Thyroid: No thyromegaly. Trachea: No tracheal deviation. Cardiovascular: Rate and Rhythm: Normal rate and regular rhythm. Pulmonary: Effort: Pulmonary effort is normal. No respiratory distress. Musculoskeletal: General: Swelling and tenderness present. Skin: General: Skin is warm and dry. Neurological: Mental Status: She is alert and oriented to person, place, and time. documented in this encounter Plan of Treatment Date Type Specialty Care Team Description 02/26/2019 Office Visit Pain Medicine 03/09/2019 Procedure visit Gastroenterology Del Grey MD [address] [facility] [address] [place], [place] [id number] 03/11/2019 Office Visit Vascular Surgery Zacarias Asher MD [address] [facility] [address] [place] [address] [phone] 05/25/2019 Appointment Radiology 08/19/2019 Office Visit Rheumatology Karl Radford MD [address] 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 - [id number] Right: HOLOGIC 2017 [id number] / Implanted: Qty: 1 on 05/27/2017 by Loy Vazquez MD at [facility] Breast / [id number] documented as of this encounter Procedures Procedure Name Priority Date/Time Associated Diagnosis Comments CREATININE WITH GFR Routine 02/18/2019 4:02 SLE (systemic lupus Results for this PM EST erythematosus related procedure are in syndrome) the results High risk medication section. use SEDIMENTATION RATE, Routine 02/18/2019 4:02 SLE (systemic lupus Results for this AUTOMATED PM EST erythematosus related procedure are in syndrome) the results High risk medication section. use CBC AND DIFFERENTIAL Routine 02/18/2019 4:02 SLE (systemic lupus Results for this PM EST erythematosus related procedure are in syndrome) the results High risk medication section. use C3 COMPLEMENT Routine 02/18/2019 4:02 SLE (systemic lupus Results for this PM EST erythematosus related procedure are in syndrome) the results High risk medication section. use C4 COMPLEMENT Routine 02/18/2019 4:02 SLE (systemic lupus Results for this PM EST erythematosus related procedure are in syndrome) the results High risk medication section. use C-REACTIVE PROTEIN Routine 02/18/2019 4:02 SLE (systemic lupus Results for this PM EST erythematosus related procedure are in syndrome) the results High risk medication section. use ALT Routine 02/18/2019 4:02 SLE (systemic lupus Results for this PM EST erythematosus related procedure are in syndrome) the results High risk medication section. use AST Routine 02/18/2019 4:02 SLE (systemic lupus Results for this PM EST erythematosus related procedure are in syndrome) the results High risk medication section. use documented in this encounter Results C4 complement (02/18/2019 4:02 PM EST) C4 - Complement 24 10 - 40 mg/dL [facility] Pathology Specimen Plasma Performing Organization Address [facility] Phone Number [facility] CLINICAL PATHOLOGY [address] [place] [address] [facility] [address] [place] [address] Pathology C3 complement (02/18/2019 4:02 PM EST) C3 - Complement 106 90 - 180 mg/dL [facility] Pathology Specimen Plasma Performing Organization Address [facility] Phone Number [facility] [address] [place] [address] [facility] [address] [place] [address] Pathology Sedimentation rate, automated (02/18/2019 4:02 PM EST) Sed Rate - ESR 6 <30 mm/hr [facility] Pathology Specimen EDTA Whole Blood Performing Organization Address [facility] Phone Number [facility] CLINICAL PATHOLOGY [address] [place] [address] [facility] [address] [place] [id number] Pathology Creatinine with GFR (02/18/2019 4:02 PM EST) Creatinine 0.97 (H) 0.50 - 0.90 [facility] mg/dL [facility] Pathology GFR Non 66 >60 [facility] [place] 2009 CDK-EPI mL/min/1.73m2 [facility] Pathology GFR 76 >60 [facility] 2009 CKD-EPI mL/min/1.73m2 [facility] Pathology Specimen Plasma Performing Organization Address [facility] Phone Number [facility] [address] [place] [address] [facility] [address] [place] [address] Pathology C-reactive protein (02/18/2019 4:02 PM EST) C Reactive Protein 1.8 <8.0 mg/L [facility] Pathology Specimen Plasma Performing Organization Address [facility] Phone Number [facility] CLINICAL PATHOLOGY [address] [place] [address] [facility] [address] [place] [address] Pathology CBC and Differential (02/18/2019 4:02 PM EST) White Blood Cell 7.3 4 - 10 [facility] 10*3/uL [facility] Red Blood Cell 4.10 4.1 - 5.3 [facility] 10*6/uL [facility] Hemoglobin 12.7 11.5 - 15.5 [facility] g/dL [facility] Hematocrit 38.1 36 - 45 % [facility] Pathology Mean Cell Volume 92.9 80 - 96 fL [facility] Pathology Mean Cell Hemoglobin 30.9 27 - 33 pg [facility]ology Mean Cell Hgb Conc 33.3 32.0 - 36.0 [facility] g/dL [facility] Pathology Red Cell Dist Width 14.1 11.5 - 14.5 % [facility] Pathology Platelet Count 381 150 - 400 [facility] 10*3/uL [facility] Pathology Differential Type Automated Diff [facility]ology Neutrophil 54 % [facility]ology Lymphocyte 35 % [facility]ology Monocyte 7 % [facility]ology Eosinophil 3 % [facility] Pathology Basophil 1 % [facility] Pathology Abs Neutrophil 4.02 1.8 - 7.0 [facility] 10*3/uL [facility] Pathology Abs Lymphocyte 2.57 1.2 - 4.0 [facility] 10*3/uL [facility] Pathology Abs Monocyte 0.52 0 - 0.8 [facility] 10*3/uL [facility] Pathology Abs Eosinophil 0.19 0 - 0.5 [facility] 10*3/uL [facility] Pathology Abs Basophil 0.04 0 - 0.2 [facility] 10*3/uL [facility] Pathology Nucleated Red Blood 0 0 - 0 [facility] Cells /100{WBCs} [facility] Pathology Specimen EDTA Whole Blood Performing Organization Address City/[facility] Phone Number [facility] CLINICAL PATHOLOGY [address] [place] [address] [phone] [facility] [address] [place] [address] Pathology AST (02/18/2019 4:02 PM EST) AST/SGO 19 <32 U/L [facility] Pathology Specimen Plasma Performing Organization Address [facility] Phone Number [facility] CLINICAL PATHOLOGY [address] [place] [address] [facility] [address] [place] [address] Pathology ALT (02/18/2019 4:02 PM EST) ALT/SGP 13 <33 U/L [facility] Pathology Specimen Plasma Performing Organization Address [facility] Phone Number [facility] CLINICAL PATHOLOGY [address] [place] [address] [facility] [address] [place] [address] Pathology documented in this encounter Visit Diagnoses Diagnosis SLE (systemic lupus erythematosus related syndrome) - Primary Systemic lupus erythematosus Long-term use of Plaquenil High risk medication use Encounter for long-term (current) use of other medications Anticoagulated Encounter for long-term (current) use of anticoagulants documented in this encounter
[2019-04-05 17:55] VITALS: BP 108/42
--- NOTE | 2019-04-05 18:02 | UC ---
Skin Complaint HPI - HPI Summary HPI Summary: 53-year-old female who is experiencing a burning stinging rash to her mid back which started today. - History of Current Complaint Chief Complaint: UCSkin Time Seen by Provider: 04/05/19 17:35 Stated Complaint: RASH Hx Obtained From: Patient ?: No Onset/Duration: Gradual Onset Skin Exposure Onset/Duration: Hours Ago Timing: Constant Onset Severity: Moderate Current Severity: Moderate Pain Intensity: 5 Location: Other Character: Redness - Mid back, Raised, Painful Aggravating Factor(s): Clothing Alleviating Factor(s): Nothing Associated Signs & Symptoms: Positive: Negative - Allergy/Home Medications Allergies/Adverse Reactions: Allergies Allergy/AdvReac Type Severity Reaction Status Date / Time morphine Allergy Unknown itchy rash Verified 04/05/19 17:41 ciprofloxacin [From Cipro] Allergy itchy rash Verified 04/05/19 17:41 levofloxacin [From Levaquin] Allergy itchy rash Verified 04/05/19 17:41 Home Medications: Home Medications Fenofibrate [Tricor] 145 mg PO DAILY 02/09/14 [History Confirmed 04/05/19] Gabapentin 900 mg PO TID 02/09/14 [History Confirmed 04/05/19] Levothyroxine Sodium [Synthroid] 50 mcg PO DAILY 02/09/14 [History Confirmed ] Acetaminophen 1,000 mg PO DAILY 05/21/14 [History Confirmed 03/20/16] Vitamin B Complex TAB* [Complex B-100] 1 tab PO DAILY 05/21/14 [History Confirmed 04/05/19] Hydroxychloroquine TAB* [Plaquenil TAB*] 200 mg PO BID 03/20/16 [History Confirmed 03/20/16] Apixaban* [Eliquis*] 5 mg PO BID 04/05/19 [History Confirmed 04/05/19] Meloxicam 7.5 mg PO PRN 04/05/19 [History] Mycophenolate Mofetil TAB(*) [Cellcept TAB(*)] 500 mg PO BID 04/05/19 [History Confirmed 04/05/19] Omeprazole 40 mg PO DAILY 04/05/19 [History Confirmed 04/05/19] Simvastatin TAB(NF) [Zocor(NF)] 10 mg PO DAILY 04/05/19 [History Confirmed 04/05] ValACYclovir (*) [Valtrex 1 GM(*)] 1 gm PO TID #20 tab 04/05/19 [Rx] PMH/Surg Hx/FS Hx/Imm Hx Previously Healthy: Yes Endocrine History: Thyroid Disease Cardiovascular History: Other - SVT - Surgical History Surgical History: Yes Surgery Procedure, Year, and Place: HYSTERECTOMY, GALL BLADDER REMOVAL, TONSILLECTOMY - Family History Known Family History: Negative: Cardiac Disease, Hypertension, Diabetes - Social History Alcohol Use: Occasionally Substance Use Type: None Smoking Status (MU): Current Some Day Smoker Type: Cigarettes Length of Time of Smoking/Using Tobacco: 30 YRS Review of Systems All Other Systems Reviewed And Are Negative: Yes Skin: Positive: Rash - Rash mid back which started today and she describes as burning and stinging. Is Patient Immunocompromised?: No Physical Exam Triage Information Reviewed: Yes Appearance: Well-Appearing, No Pain Distress, Well-Nourished Vital Signs: Initial Vital Signs Temp 97.8 F 04/05/19 17:47 Pulse 89 04/05/19 17:47 Resp 15 04/05/19 17:47 BP 108/42 04/05/19 17:47 Pulse Ox 98 04/05/19 17:47 Vital Signs Reviewed: Yes Musculoskeletal Exam: Normal Neurological Exam: Normal Psychological Exam: Normal Skin: Positive: Rashes - Patient has a herpetic rash to her mid back, which measures approximately 3.0 cm in diameter. Course/Dx - Course Course Of Treatment: Patient is comfortable here. She was given acyclovir 400 mg by mouth and she will continue valacyclovir 1 g 3 times a day 7 days. - Diagnoses Provider Diagnosis: Shingles Discharge ED - Sign-Out/Discharge Documenting (check all that apply): Patient Departure All imaging exams completed and their final reports reviewed: No Studies - Discharge Plan Condition: Good Disposition: HOME Prescriptions: ValACYclovir (*) [Valtrex 1 GM(*)] 1 gm PO TID #20 tab Patient Education Materials: Shingles (ED) Referrals: Chloe Goins MD [Primary Care Provider] - Additional Instructions: Avoid scratching the area. May take Tylenol every 4 hours and alternate with Aleve every 12 hours for pain. Follow-up with your primary care provider if no improvement in 3 or 4 days. - Billing Disposition and Condition Condition: GOOD Disposition: Home
[2019-04-05] MEDS ORDERED: Acyclovir* 200 MG CAP PO ONE (18:09)
== END 2019-04-05 18:21 | disposition home or self-care (01) ==
LOC: UCCORT 17:10
DX: B02.9 Zoster without complications (principal); E07.9 Disorder of thyroid, unspecified; F17.210 Nicotine dependence, cigarettes, uncomplicated; Z88.5 Allergy status to narcotic agent; Z88.1 Allergy status to other antibiotic agents; Z79.890 Hormone replacement therapy
CPT/HCPCS: 99202; A9270-GY; G0463